=== PATIENT | male | born 1995 | race Caucasian/White ===

== ENCOUNTER 2016-12-09 13:27 | Emergency (ER) | payer BC ==
[~2016-12-09] VITALS: Ht 188 cm; Wt 66.9 kg
[~2016-12-09 13:27] MED LIST: SERT1TAB71 PO
[2016-12-09 13:35] VITALS: TEMP 36.7; Ht 188 cm; Wt 66.9 kg
[2016-12-09] MEDS ORDERED: MECLIZINE HCL 25 MG TAB PO STA (13:53)
[2016-12-09] MEDS ORDERED: SODIUM CHLORIDE 0.9% 1000ML 1,000 ML IV ONE (14:00)
--- NOTE | 2016-12-09 14:00 | EMERGENCY ROOM VISIT NOTE ---
History First contact with patient: 13:42 Chief Complaint: DIZZY Stated Complaint: LIGHT HEADED, PRESSURE IN HEARS Nursing Triage Summary: Pt states he has felt dizzy and a pressure like sensation in his head since sat. States does not know if he had fallen or injured himself on Saturday night when he was out drinking. History of Present Illness The patient is a 21 year old male who presents to the Emergency Room with complaints of a dizziness that has been going on for the last 5 days. The patient says that he feels like he is "in a fog." It is intermittent throughout the day. He denies any spinning sensation. No nausea or vomiting. He denies any headache. No changes in vision. He does complain of a fullness in his ears. He denies any ear pain. No fever or chills. No sinus pressure or sore throat. The patient says that he drank a large amount of vodka on Saturday night, and blacked out. He does not remember anything from the night, and woke up in a friend's bed on Saturday morning. He is unsure if he hit his head. He denies any known injuries or any pain. The patient is concerned that his symptoms are related to excessive alcohol use. He denies any other appreciable drugs. No recent changes in medications. He has been eating and drinking normally. Review of Systems 10 system review performed and negative unless noted in HPI or below Past Medical/Surgical History Generalized anxiety disorder Family History Cancer Social History Smoking Status: Never Smoker Alcohol Use: occasionally Occupation Status: [employer] student Current/Historical Medications Scheduled Sertraline Hcl (Zoloft), 75 MG PO DAILY Allergies Coded Allergies: No Known Allergies (Unverified , 12/09/16) Physical Exam Vital Signs Date Time Temp Pulse Resp B/P (MAP) Pulse Ox O2 Delivery O2 Flow Rate FiO2 12/09/16 15:46 70 16 103/59 98 12/09/16 15:30 70 16 103/59 98 Room Air 12/09/16 15:01 73 16 106/62 98 Room Air 12/09/16 14:22 71 12/09/16 14:10 78 18 121/63 98 Room Air 80 119/74 87 118/69 12/09/16 13:35 36.7 98 16 134/82 98 Room Air Physical Exam VITALS: Vitals are noted on the nurse's note and reviewed by myself. Vital signs stable. GENERAL: 21-year-old male, in no acute distress, nondiaphoretic, well-developed well-nourished. SKIN: The skin was without rashes, erythema, edema, or bruising. HEAD: Normocephalic atraumatic. EARS: External auditory canals clear, tympanic membranes pearly [place] without erythema or effusion bilaterally. EYES: Pupils equal round and reactive to light and accommodation. Conjunctivae without injection, sclerae without icterus. Extraocular movements intact. MOUTH: Mucous membranes slightly dry. Tonsils are not enlarged. Pharynx without erythema or exudate. Uvula midline. Airway patent. Tongue does not deviate. NECK: Supple without nuchal rigidity. No lymphadenopathy.. No JVD. HEART: Regular rate and rhythm without murmurs gallops or rubs. LUNGS: Clear to auscultation bilaterally without wheezes, rales or rhonchi. No accessory muscle use. ABDOMEN: Positive bowel sounds x 4. MUSCULOSKELETAL: No muscle atrophy, erythema, or edema noted. Full range of motion in all extremities.Normal gait. Strength 5/5 throughout. NEURO: Patient was alert and oriented to person place and time. Cranial nerves grossly intact. Cerebellar function intact. Normal heel to toe walking. Negative Romberg. Normal sensation to touch. No focal neurological deficits. Medical Decision & Procedures Laboratory Results 12/09/16 14:00 Red Blood Count 5.22, Mean Corpuscular Volume 84.3, Mean Corpuscular Hemoglobin 30.1, Mean Corpuscular Hemoglobin Concent 35.7, Mean Platelet Volume 9.8, Neutrophils (%) (Auto) 65.4, Lymphocytes (%) (Auto) 24.4, Monocytes (%) (Auto) 7.2, Eosinophils (%) (Auto) 2.1, Basophils (%) (Auto) 0.7, Neutrophils # (Auto) 5.34, Lymphocytes # (Auto) 2.00, Monocytes # (Auto) 0.59, Eosinophils # (Auto) 0.17, Basophils # (Auto) 0.06 12/09/16 14:00 Test 12/09/16 13:50 12/09/16 14:00 Urine Color YELLOW Urine Appearance CLEAR (CLEAR) Urine pH 7.5 (4.5-7.5) Urine Specific [place] 1.008 (1.000-1.030) Urine Protein NEG (NEG) Urine Glucose (UA) NEG (NEG) Urine Ketones NEG (NEG) Urine Occult Blood NEG (NEG) Urine Nitrite NEG (NEG) Urine Bilirubin NEG (NEG) Urine Urobilinogen NEG (NEG) Urine Leukocyte Esterase NEG (NEG) Urine Opiates Screen NEG (NEG) Urine Methadone, Qualitative NEG (NEG) Urine Barbiturates NEG (NEG) Urine Phencyclidine (PCP) Level NEG (NEG) Ur Amphetamine/Methamphetamine NEG (NEG) MDMA (Ecstasy) Screen NEG (NEG) Urine Benzodiazepines Screen NEG (NEG) Urine Cocaine Metabolite NEG (NEG) Urine Marijuana (THC) NEG (NEG) White Blood Count 8.18 K/uL (4.8-10.8) Red Blood Count 5.22 M/uL (4.7-6.1) Hemoglobin 15.7 g/dL (14.0-18.0) Hematocrit 44.0 % (42-52) Mean Corpuscular Volume 84.3 fL (80-100) Mean Corpuscular Hemoglobin 30.1 pg (25-34) Mean Corpuscular Hemoglobin Concent 35.7 g/dl (32-36) Platelet Count 175 K/uL (130-400) Mean Platelet Volume 9.8 fL (7.4-10.4) Neutrophils (%) (Auto) 65.4 % Lymphocytes (%) (Auto) 24.4 % Monocytes (%) (Auto) 7.2 % Eosinophils (%) (Auto) 2.1 % Basophils (%) (Auto) 0.7 % Neutrophils # (Auto) 5.34 K/uL (1.4-6.5) Lymphocytes # (Auto) 2.00 K/uL (1.2-3.4) Monocytes # (Auto) 0.59 K/uL (0.11-0.59) Eosinophils # (Auto) 0.17 K/uL (0-0.5) Basophils # (Auto) 0.06 K/uL (0-0.2) RDW Standard Deviation 40.7 fL (36.4-46.3) RDW Coefficient of Variation 13.3 % (11.5-14.5) Immature Granulocyte % (Auto) 0.2 % Immature Granulocyte # (Auto) 0.02 K/uL (0.00-0.02) Anion Gap 4.0 mmol/L (3-11) Est Creatinine Clear Calc Drug Dose 118.6 ml/min Estimated GFR () 134.7 Estimated GFR (Non- 116.2 BUN/Creatinine Ratio 14.0 (10-20) Calcium Level 9.5 mg/dl (8.5-10.1) Magnesium Level 2.3 mg/dl (1.8-2.4) Total Bilirubin 0.5 mg/dl (0.2-1) Aspartate Amino Transf (AST/SGOT) 11 U/L (15-37) Alanine Aminotransferase (ALT/SGPT) 23 U/L (12-78) Alkaline Phosphatase 73 U/L (45-117) Total Protein 7.7 gm/dl (6.4-8.2) Albumin 4.5 gm/dl (3.4-5.0) Globulin 3.2 gm/dl (2.5-4.0) Albumin/Globulin Ratio 1.4 (0.9-2) Lipase 100 U/L (73-393) Medications Administered Medications (Trade) Dose Ordered Sig/Siva Route Start Time Stop Time Status Last Admin Dose Admin Sodium Chloride 1,000 ml @ 999 mls/hr Q1H1M ONCE IV 12/09/16 14:00 12/09/16 15:00 DC 12/09/16 14:08 999 MLS/HR Meclizine HCl (Antivert Tab) 25 mg NOW STAT PO 12/09/16 13:53 12/09/16 13:54 DC 12/09/16 14:08 25 MG Sodium Chloride 500 ml @ 999 mls/hr Q31M STAT IV 12/09/16 14:53 12/09/16 15:23 DC 12/09/16 15:17 999 MLS/HR ECG Indication: other Rate (beats per minute): 68 Rhythm: sinus with SA Comparison ECG Date: no prior available ED Course Patient was seen and examined Vital signs including blood pressure were reviewed medications list was verified with patient Labs were obtained, and a saline lock was established A monitor was applied. EKG was performed. Orthostatic vital signs were obtained. The patient was hydrated with 1 L of normal saline and given 1 dose of meclizine 25 mg His blood work was reviewed Upon reevaluation, the patient was feeling much better. He was hydrated with an additional 500 mL of normal saline. An ambulation trial wasn't performed. The patient did not have any symptoms. We discussed the results of his workup. I reviewed discharge instructions the patient. They voiced understanding and had no further questions. Medical Decision Differential diagnosis: Anxiety, dehydration, benign positional vertigo, CVA, TIA, closed head injury, intracranial bleed, otitis media, Mnire's disease This patient is a 21-year-old male that presented to the emergency department with complaints of feeling like he was in a fog for the last several days after a night of binge drinking. His neurologic exam is normal. I do not see any signs of trauma. I do not find any imaging necessary. The patient was hydrated and given 1 dose of meclizine. He did have good symptomatic relief. I believe that likely his symptoms are in exacerbation of his anxiety in addition to mild dehydration. The patient was advised to not binge drink alcohol. He did not have any thoughts of harming himself or others at any point. I believe he is stable to be discharged home area Impression Primary Impression: Dizziness Departure Information Dispostion Home / Self-Care Condition GOOD Referrals No Doctor, Assigned (PCP) Patient Instructions My [facility] Additional Instructions Please increase your fluid intake over the next several days. Please avoid alcohol as this likely will exacerbate your symptoms. It is recommended that you follow-up with a primary care physician or [facility] services within one week for a recheck Please return to the emergency department with any worsening symptoms or medical concerns.
[2016-12-09 14:14] LABS: BASO % 0.7 %; BASO ABS # 0.06 K/uL (0-0.2); COMPLETE YES; EOS % 2.1 %; IG% 0.2 %; LYMPH % 24.4 %; MEAN CELL VOLUME 84.3 fL (80-100); MEAN CORPUSCULAR HEMOGLOBIN 30.1 pg (25-34); MEAN CORPUSCULAR HGB CONC 35.7 g/dl (32-36); MEAN PLATELET VOLUME 9.8 fL (7.4-10.4); MONO % 7.2 %; NEUT % 65.4 %; PLATELET COUNT 175 K/uL (130-400); RED BLOOD COUNT 5.22 M/uL (4.7-6.1); WHITE BLOOD COUNT 8.18 K/uL (4.8-10.8)
[2016-12-09 14:32] LABS: CALCIUM 9.5 mg/dl (8.5-10.1); CREATININE 0.94 mg/dl (0.60-1.40); MAGNESIUM 2.3 mg/dl (1.8-2.4); POTASSIUM 4.1 mmol/L (3.5-5.1)
[2016-12-09 14:35] LABS: ALB/GLOB RATIO 1.4 (0.9-2)
[2016-12-09 14:50] LABS: URINE APPEARANCE CLEAR (CLEAR); URINE BILIRUBIN NEG (NEG); URINE COLOR YELLOW; URINE NITRITE NEG (NEG); URINE PH 7.5 (4.5-7.5); URINE SPECIFIC GRAVITY 1.008 (1.000-1.030); UROBILINOGEN NEG (NEG)
[2016-12-09] MEDS ORDERED: SODIUM CHLORIDE 0.9% 500ML 500 ML IV STA (14:53)
[2016-12-09 14:54] LABS: MANUAL MICROSCOPIC REQUIRED? NO; REVIEW REQ? NO
[2016-12-09 15:16] LABS: BENZODIAZEPINE, URINE NEG (NEG); COCAINE,URINE NEG (NEG); PHENCYCLIDINE, URINE NEG (NEG)
[2016-12-09 15:46] VITALS: BP 103/59; PULSE 70; O2SAT 98
== END 2016-12-09 15:47 | disposition home or self-care (01) ==
LOC: C.EDB 13:28 → C.EDA 15:47
DX: R42 Dizziness and giddiness (principal); F41.9 Anxiety disorder, unspecified